=== PATIENT | female | born 1955 | race Two or more races ===

== ENCOUNTER 2023-11-02 12:53 | Inpatient (IN) | payer MEDICARE, OTHER ==
[~2023-11-02] VITALS: Ht 157.5 cm; Wt 64.9 kg
[2023-11-02] MEDS ORDERED: HYDR-500 PO (14:00)
[2023-11-02] MEDS ORDERED: diphenhydrAMINE HCL 50 MG/ML VIAL IV ONE (14:00)
[2023-11-02] MEDS ORDERED: DOXY100T2 PO (14:00)
[2023-11-02] MEDS ORDERED: diphenhydrAMINE HCL 50 MG/ML VIAL ONE (14:15)
[2023-11-02 14:34] LABS: BASOPHILS # (AUTO) 0.1 K/uL (0.0-0.2); BASOPHILS % (AUTO) 0.7 % (0.0-2.0); EOSINOPHILS # (AUTO) 0.8 K/uL (0.0-0.7); EOSINOPHILS % (AUTO) 8.1 % (0.0-6.0); HEMATOCRIT 44 % (33-45); HEMOGLOBIN 14.9 g/dL (11.5-14.8); LYMPHOCYTES # (AUTO) 2.6 K/uL (0.8-4.8); LYMPHOCYTES % (AUTO) 26.9 % (20.0-44.0); MEAN CORPUSCULAR HEMOGLOBIN 29 PG (26.0-33.0); MEAN CORPUSCULAR HGB CONC 34 g/dl (31.0-36.0); MEAN CORPUSCULAR VOLUME 85 fL (82-100); MONOCYTES # (AUTO) 0.6 K/uL (0.1-1.30); MONOCYTES % (AUTO) 6.7 % (2.0-12.0); NEUTROPHILS # (AUTO) 5.5 K/uL (1.8-8.9); NEUTROPHILS % (AUTO) 57.6 % (43.0-81.0); RED BLOOD CELL COUNT(AUTO) 5.19 MIL/uL (4.0-5.2); RED CELL DISTRIBUTION WIDTH 14.5 % (11.5-15.0); WHITE BLOOD COUNT (AUTO) 9.5 K/uL (4.3-11.0)
[2023-11-02 14:43] LABS: CALCIUM, SERUM 9.8 mg/dL (8.5-10.1); CREATININE 0.8 mg/dL (0.6-1.3); POTASSIUM 3.9 mmol/L (3.5-5.1)
[2023-11-02 15:04] LABS: INR 0.97 (0.91-1.10); PARTIAL THROMBOPLASTIN TIME 30.5 SEC (24.3-34.3); PROTHROMBIN TIME 10.3 SECS (9.2-11.1)
[2023-11-02 15:07] LABS: PLATELET COUNT (AUTO) 98 K/uL (150-450)
[2023-11-02] MEDS ORDERED: Z GUARD REMEDY 4 OZ OINT TP PRN (16:30)
[2023-11-02] MEDS ORDERED: ONDANSETRON HCL/PF 4 MG/2 ML VIAL IVP PRN (16:30)
[2023-11-02] MEDS ORDERED: MAG HYDROX/AL HYDROX/SIMETH 30 ML UDC PO PRN (16:30)
[2023-11-02] MEDS ORDERED: MAGNESIUM HYDROXIDE 30 ML UDC PO PRN (16:30)
[2023-11-02] MEDS ORDERED: ZOLPIDEM TARTRATE 5 MG TABLET PO PRN (16:30)
[2023-11-02] MEDS ORDERED: HYDROMORPHONE 1 MG/1 ML DISP.SYRIN IV PRN (17:00)
[2023-11-02] MEDS ORDERED: VANCOMYCIN 1 GM in IV D5W 250 ML IV ONE (18:00)
[2023-11-02 20:49] LABS: ANISOCYTOSIS 1+; BAND % (MANUAL) 1 % (0.0-5.0); EOSINOPHILS % (MANUAL) 7 % (0-4); LYMPHOCYTES % (MANUAL) 29 % (16-48); MONOCYTES % (MANUAL) 4 % (0-11.0); NEUTROPHILS % (MANUAL) 59 (42-76); PLATELET ESTIMATE PLATELET CLUMPS SEEN
[2023-11-02 22:50] VITALS: BP 120/83; TEMP 98.4; O2SAT 96
[2023-11-02] MEDS: diphenhydrAMINE HCL 50 MG/ML VIAL IV PRN (23:46)
[2023-11-02] MEDS: IV NS 0.9% 1,000 ML IV PRN (23:46)
[2023-11-03] MEDS ORDERED: VANCOMYCIN 1 GM /D5W 250 ML PB IV ONE (04:51)
[2023-11-03] MEDS: VANCOMYCIN 0.75 GM in IV D5W 250 ML IV SCH ×2 (05:05→17:44)
[2023-11-03 07:35] LABS: CALCIUM, SERUM 9.1 mg/dL (8.5-10.1); CREATININE 0.9 mg/dL (0.6-1.3); PHOSPHORUS 3.8 mg/dL (2.5-4.9)
[2023-11-03 07:36] LABS: BASOPHILS % (AUTO) 0.6 % (0.0-2.0); EOSINOPHILS # (AUTO) 0.8 K/uL (0.0-0.7); EOSINOPHILS % (AUTO) 10.4 % (0.0-6.0); HEMATOCRIT 39 % (33-45); HEMOGLOBIN 13.3 g/dL (11.5-14.8); LYMPHOCYTES # (AUTO) 2.3 K/uL (0.8-4.8); MEAN CORPUSCULAR HEMOGLOBIN 29 PG (26.0-33.0); MEAN CORPUSCULAR HGB CONC 34 g/dl (31.0-36.0); MEAN CORPUSCULAR VOLUME 85 fL (82-100); MONOCYTES # (AUTO) 0.5 K/uL (0.1-1.30); MONOCYTES % (AUTO) 6.8 % (2.0-12.0); NEUTROPHILS % (AUTO) 52.2 % (43.0-81.0); RED BLOOD CELL COUNT(AUTO) 4.62 MIL/uL (4.0-5.2); RED CELL DISTRIBUTION WIDTH 14.7 % (11.5-15.0); WHITE BLOOD COUNT (AUTO) 7.6 K/uL (4.3-11.0)
[2023-11-03 08:00] VITALS: BP 135/94; TEMP 98.1; O2SAT 98
[2023-11-03] MEDS: CEFEPIME 1 GM in IV D5W 50 ML IV SCH ×2 (10:29→21:35)
[2023-11-03 10:39] LABS: CHOLESTEROL 192 mg/dL (<200); HDL CHOLESTEROL 41 mg/dL (40-60); LDL 107 mg/dL (0-99); TRIGLYCERIDES 215 mg/dL (30-150)
[2023-11-03 15:19] LABS: PLATELET COUNT (AUTO) 153 K/uL (150-450)
[2023-11-03 16:00] VITALS: BP 118/84; TEMP 98.2; O2SAT 94
[2023-11-03] MEDS: LACTOBACILLUS RHAMNOSUS GG 1 EACH CAP.SPRINK PO SCH (16:45)
[2023-11-03 20:00] VITALS: BP 135/89; TEMP 97.7; O2SAT 97
[2023-11-03] MEDS: diphenhydrAMINE HCL 50 MG/ML VIAL IV PRN (21:58)
[2023-11-03 22:25] LABS: BASOPHILS % (MANUAL) 1 % (0.0-2.0); EOSINOPHILS % (MANUAL) 6 % (0-4); LYMPHOCYTES % (MANUAL) 26 % (16-48); MONOCYTES % (MANUAL) 3 % (0-11.0); NEUTROPHILS % (MANUAL) 64 (42-76); PLATELET ESTIMATE ADEQU
[2023-11-04] VITALS (8 sets, daily range): BP systolic 103–123; BP diastolic 65–84; TEMP 96.7–98.2; O2SAT 95–98
[2023-11-04] MEDS: VANCOMYCIN 0.75 GM in IV D5W 250 ML IV SCH ×2 (05:05→17:18)
[2023-11-04] MEDS ORDERED: LIDOCAINE HCL/MPF 1% 30 ML VIAL IJ ONE (06:31)
[2023-11-04] MEDS ORDERED: BUPIVACAINE 0.5 % PF 150 MG/30 ML VIAL ONE (06:32)
[2023-11-04] MEDS ORDERED: FENTANYL PF 100MCG/2ML AMPUL ONE (07:06)
[2023-11-04] MEDS ORDERED: MIDAZOLAM HCL 2 MG/2ML VIAL ONE (07:07)
[2023-11-04] MEDS ORDERED: FAMOTIDINE/PF INJ 20 MG/2 ML VIAL IV ONE (07:07)
[2023-11-04] MEDS: CEFEPIME 1 GM in IV D5W 50 ML IV SCH ×2 (09:36→21:51)
[2023-11-04] MEDS: LACTOBACILLUS RHAMNOSUS GG 1 EACH CAP.SPRINK PO SCH ×2 (09:36→16:09)
[2023-11-04] MEDS: HYDROCODONE/APAP 10/325MG TABLET PO PRN ×3 (09:36→20:07)
[2023-11-04 14:07] LABS: CALCIUM, SERUM 8.6 mg/dL (8.5-10.1); POTASSIUM 4.7 mmol/L (3.5-5.1)
[2023-11-04] MEDS: IV NS 0.9% 1,000 ML IV PRN (17:09)
[2023-11-04] MEDS: ACETAMINOPHEN 325 MG TABLET PO PRN (17:23)
[2023-11-05 07:26] LABS: CALCIUM, SERUM 9.3 mg/dL (8.5-10.1); CREATININE 0.9 mg/dL (0.6-1.3); PHOSPHORUS 2.9 mg/dL (2.5-4.9); POTASSIUM 4.5 mmol/L (3.5-5.1)
[2023-11-05 07:30] VITALS: BP 131/87; TEMP 97.7; O2SAT 98
[2023-11-05 08:36] LABS: BASOPHILS % (AUTO) 0.2 % (0.0-2.0); EOSINOPHILS % (AUTO) 0.2 % (0.0-6.0); HEMATOCRIT 38 % (33-45); HEMOGLOBIN 12.6 g/dL (11.5-14.8); LYMPHOCYTES % (AUTO) 11.7 % (20.0-44.0); MEAN CORPUSCULAR HEMOGLOBIN 29 PG (26.0-33.0); MEAN CORPUSCULAR HGB CONC 33 g/dl (31.0-36.0); MEAN CORPUSCULAR VOLUME 86 fL (82-100); MONOCYTES # (AUTO) 1.2 K/uL (0.1-1.30); MONOCYTES % (AUTO) 6.7 % (2.0-12.0); NEUTROPHILS % (AUTO) 81.2 % (43.0-81.0); PLATELET COUNT (AUTO) 162 K/uL (150-450); RED CELL DISTRIBUTION WIDTH 14.5 % (11.5-15.0); WHITE BLOOD COUNT (AUTO) 17.2 K/uL (4.3-11.0)
[2023-11-05] MEDS: CEFEPIME 1 GM in IV D5W 50 ML IV SCH ×2 (09:44→20:06)
[2023-11-05] MEDS: LACTOBACILLUS RHAMNOSUS GG 1 EACH CAP.SPRINK PO SCH ×2 (09:50→16:53)
[2023-11-05] MEDS: IV NS 0.9% 1,000 ML IV PRN (10:32)
[2023-11-05] MEDS: VANCOMYCIN 1.25 GM in IV D5W 250 ML IV SCH (11:39)
[2023-11-05] MEDS ORDERED: FLUCONAZOLE (100 MG) 100 MG TABLET PO STA (12:20)
[2023-11-05 16:00] VITALS: BP 133/80; TEMP 98.2; O2SAT 98
[2023-11-05] MEDS: MICONAZOLE NITRATE VAG CREAM 45 GM TUBE VG SCH (16:52)
[2023-11-05 20:00] VITALS: BP 143/91; TEMP 97.8; O2SAT 95
[2023-11-06] MEDS: IV NS 0.9% 1,000 ML IV PRN (01:28)
[2023-11-06] MEDS: ACETAMINOPHEN 325 MG TABLET PO PRN (01:39)
[2023-11-06 07:44] LABS: CALCIUM, SERUM 9.1 mg/dL (8.5-10.1); POTASSIUM 4.1 mmol/L (3.5-5.1)
[2023-11-06 09:25] LABS: BASOPHILS # (AUTO) 0.1 K/uL (0.0-0.2); EOSINOPHILS # (AUTO) 0.4 K/uL (0.0-0.7); EOSINOPHILS % (AUTO) 3.7 % (0.0-6.0); HEMATOCRIT 40 % (33-45); HEMOGLOBIN 13.4 g/dL (11.5-14.8); LYMPHOCYTES % (AUTO) 29.8 % (20.0-44.0); MEAN CORPUSCULAR HEMOGLOBIN 29 PG (26.0-33.0); MEAN CORPUSCULAR HGB CONC 34 g/dl (31.0-36.0); MEAN CORPUSCULAR VOLUME 86 fL (82-100); MONOCYTES # (AUTO) 0.8 K/uL (0.1-1.30); MONOCYTES % (AUTO) 7.7 % (2.0-12.0); NEUTROPHILS # (AUTO) 5.9 K/uL (1.8-8.9); NEUTROPHILS % (AUTO) 57.8 % (43.0-81.0); PLATELET COUNT (AUTO) 110 K/uL (150-450); RED BLOOD CELL COUNT(AUTO) 4.66 MIL/uL (4.0-5.2); RED CELL DISTRIBUTION WIDTH 14.5 % (11.5-15.0); WHITE BLOOD COUNT (AUTO) 10.2 K/uL (4.3-11.0)
[2023-11-06] MEDS: CEFEPIME 1 GM in IV D5W 50 ML IV SCH ×2 (09:52→20:16)
[2023-11-06] MEDS: MICONAZOLE NITRATE VAG CREAM 45 GM TUBE VG SCH (09:56)
[2023-11-06] MEDS: LACTOBACILLUS RHAMNOSUS GG 1 EACH CAP.SPRINK PO SCH ×2 (09:56→17:19)
[2023-11-06] MEDS: VANCOMYCIN 1.25 GM in IV D5W 250 ML IV SCH (11:54)
[2023-11-06 13:27] LABS: ANISOCYTOSIS 1+; BAND % (MANUAL) 3 % (0.0-5.0); BASOPHILS % (MANUAL) 0 % (0.0-2.0); EOSINOPHILS % (MANUAL) 4 % (0-4); LYMPHOCYTES % (MANUAL) 34 % (16-48); MONOCYTES % (MANUAL) 6 % (0-11.0); NEUTROPHILS % (MANUAL) 53 (42-76); PLATELET ESTIMATE DECREASED
[2023-11-07 06:19] LABS: BASOPHILS % (AUTO) 0.5 % (0.0-2.0); EOSINOPHILS # (AUTO) 0.4 K/uL (0.0-0.7); EOSINOPHILS % (AUTO) 4.6 % (0.0-6.0); HEMATOCRIT 41 % (33-45); HEMOGLOBIN 13.8 g/dL (11.5-14.8); LYMPHOCYTES # (AUTO) 2.6 K/uL (0.8-4.8); LYMPHOCYTES % (AUTO) 28.5 % (20.0-44.0); MEAN CORPUSCULAR HEMOGLOBIN 29 PG (26.0-33.0); MEAN CORPUSCULAR HGB CONC 34 g/dl (31.0-36.0); MEAN CORPUSCULAR VOLUME 85 fL (82-100); MONOCYTES # (AUTO) 0.8 K/uL (0.1-1.30); MONOCYTES % (AUTO) 8.8 % (2.0-12.0); NEUTROPHILS # (AUTO) 5.3 K/uL (1.8-8.9); NEUTROPHILS % (AUTO) 57.6 % (43.0-81.0); PLATELET COUNT (AUTO) 176 K/uL (150-450); RED BLOOD CELL COUNT(AUTO) 4.82 MIL/uL (4.0-5.2); RED CELL DISTRIBUTION WIDTH 14.9 % (11.5-15.0); WHITE BLOOD COUNT (AUTO) 9.3 K/uL (4.3-11.0)
[2023-11-07 06:40] LABS: RHEUMATOID FACTOR SCREEN NEGATIVE (NEGATIVE)
[2023-11-07 06:52] LABS: CALCIUM, SERUM 9.4 mg/dL (8.5-10.1); CREATININE 0.9 mg/dL (0.6-1.3); POTASSIUM 4.2 mmol/L (3.5-5.1)
[2023-11-07 07:00] VITALS: BP 128/86; TEMP 97.9; O2SAT 99
[2023-11-07 08:38] LABS: THYROID STIMULATING HORMONE 2.51 uIU/mL (0.358-3.74)
[2023-11-07] MEDS ORDERED: SULF1TAB48 PO (08:51)
[2023-11-07] MEDS ORDERED: HYDR-3980 PO (08:51)
[2023-11-07] MEDS ORDERED: MICO45CR11 VG (08:51)
[2023-11-07] MEDS ORDERED: AMOX-430 PO (08:51)
[2023-11-07 08:53] LABS: ALBUMIN 3.3 g/dL (3.4-5.0); BILIRUBIN,DIRECT 0.1 mg/dL (0.0-0.2); BILIRUBIN,TOTAL 0.4 mg/dL (0.2-1.0); TOTAL PROTEIN, SERUM 7.2 g/dL (6.4-8.2)
[2023-11-07 08:56] LABS: C-REACTIVE PROTEIN 0.51 mg/dL (0.0-0.30)
[2023-11-09 05:06] LABS: FOLIC ACID 17.2 ng/mL (>3.0)
[2023-11-09 10:12] LABS: *ANA ANTI-CENTROMERE B AB <0.2 AI (0.0-0.9); *ANA ANTI-DNA(DS) AB, QN <1 IU/mL (0-9); *ANA ANTI-JO-1 <0.2 AI (0.0-0.9); *ANA ANTICHROMATIN ANTIBODY 0.2 AI (0.0-0.9); *ANA RNP ANTIBODIES <0.2 AI (0.0-0.9); *ANA SJOGREN'S ANTI-SS-A <0.2 AI (0.0-0.9); *ANA SJOGREN'S ANTI-SS-B <0.2 AI (0.0-0.9); *ANAANTI-SCLERODERMA-70 AB <0.2 AI (0.0-0.9); *ANASMITH AB <0.2 AI (0.0-0.9)
[2023-11-10 06:10] LABS: HEPATITIS B SURFACE AB Non Reactive (.)
[2023-11-10 07:12] LABS: *SPE ALBUMIN 3.4 g/dL (2.9-4.4); *SPE ALPHA-1-GLOBULIN 0.2 g/dL (0.0-0.4); *SPE ALPHA-2-GLOBULIN 0.7 g/dL (0.4-1.0); *SPE GLOBULIN, TOTAL 3.3 g/dL (2.2-3.9); *SPE M-SPIKE 0.5 g/dL (Not Observed); *SPE PROTEIN TOTAL 6.7 g/dL (6.0-8.5); *SPEGAMMA GLOBULIN 1.4 g/dL (0.4-1.8); IMMUNOGLOBULIN A, SERUM 137 mg/dL (87-352); IMMUNOGLOBULIN G, SERUM 1099 mg/dL (586-1602); IMMUNOGLOBULIN M, SERUM 525 mg/dL (26-217)
[2023-11-10 12:07] LABS: FREE KAPPA LT CHAINS SERUM 48.8 mg/L (3.3-19.4); FREE LAMBDA LT CHAIN SERUM 15.5 mg/L (5.7-26.3); KAPPA/LAMBDA RATIO SERUM 3.15 (0.26-1.65)
== END 2023-11-07 14:10 | disposition home health service (06) | DRG 908 ==
LOC: ER 12:53 → TRANSITION 18:45 → MED 21:48
PROVIDERS: ADMIT Nurse Practitioner Acute Care; ATTEND Internal Medicine
PROC: 0LCN0ZZ Extirpation of Matter from Right Lower Leg Tendon, Open Approach (ICD-10-PCS; principal; 2023-11-04)
PROC: 0LB Tendons, Excision (ICD-10-PCS; 2023-11-04)
DX: T85.79XA Infection and inflammatory reaction due to other internal prosthetic devices, implants and grafts, initial encounter (principal); L03.115 Cellulitis of right lower limb; Y83.8 Other surgical procedures as the cause of abnormal reaction of the patient, or of later complication, without mention of misadventure at the time of the procedure; Y81.8 Miscellaneous general- and plastic-surgery devices associated with adverse incidents, not elsewhere classified; Y92.009 Unspecified place in unspecified non-institutional (private) residence as the place of occurrence of the external cause; D72.10 Eosinophilia, unspecified; D69.6 Thrombocytopenia, unspecified; R73.9 Hyperglycemia, unspecified; M76.61 Achilles tendinitis, right leg; M65.171 Other infective (teno)synovitis, right ankle and foot; B37.31 Acute candidiasis of vulva and vagina; M25.571 Pain in right ankle and joints of right foot; L29.9 Pruritus, unspecified; Z18.89 Other specified retained foreign body fragments
CPT/HCPCS: 36415; 71045-TC; 76700-TC; 80048-TC; 80061-TC; 80076-TC; 80202-TC; 82607-TC; 82784; 82962-TC; 83615-TC; 83735-TC; 84100-TC; 84155; 84165; 84443-TC; 85025-TC; 85730-TC; 86140-TC; 86225; 86235; 86334; 86431-TC; 86706; 86803; 86850-TC; 87040-TC; 87081-TC; 87340; 88300-TC; 88304-TC; 93307-TC; 97112-TC; 97116-TC; 97530-TC; A4223; G0378; J0690; J0692; J1100; J1200; J2250; J2405; J2704; J3010; J3370; J3490; J7030; J7040; J7060